=== PATIENT | male | born 1935 | race Caucasian/White ===

== ENCOUNTER 2016-12-30 05:41 | Day surgery (SDC) | payer OTHER, MEDICARE ==
[~2016-12-30] VITALS: Ht 175.3 cm; Wt 70.3 kg
--- NOTE | ~2016-12-30 | O ---
[facility] [place] [address] OPERATIVE REPORT Name: ALEX OLSON Room #: 150-7 [facility]..#: [id number] Admission: 12/30/16 Attend Phys: Kyle Ace MD Discharge: Date of : 37 Report #: [id number] THIS REPORT FOR: //name// CC: ANTHONY Ace DATE OF SERVICE: 12/30/2016 PREOPERATIVE DIAGNOSIS: Basal cell carcinoma of left lower lid and lateral canthus. POSTOPERATIVE DIAGNOSIS: Basal cell carcinoma of left lower lid and lateral canthus. PROCEDURE: Excision of basal cell carcinoma of left lower lid and lateral canthus with frozen section control with tumor extirpation and musculocutaneous flap repair of defect. SURGEON: Kyle Ace M.D. ELECTRONIC WARFARE LINGUIST: None. ANESTHESIA: General. COMPLICATIONS: None. INDICATIONS FOR SURGERY: This pleasant 81-year-old gentleman has a left lower lid basal cell carcinoma incorporated into his left lateral canthus and lower lid. He presents today for excision of this tumor with repair of the ensuing defect. Informed consent was obtained to include but not limited to potential risk for loss of vision, bleeding, infection, failure to improve the problem, and the potential need for further surgery or treatment. DESCRIPTION OF PROCEDURE: The patient was taken to the operative room where general anesthesia was administered. The left lower lid, left lateral canthus, the left cheek, and the left infratemporal fossa were all anesthetized with Xylocaine with epinephrine mixed with Marcaine and Wydase. The patient was subsequently prepped and draped in the usual sterile fashion. A fine tip skin marking pen was then utilized to outline the area of concern with a margin of 1-2 mm. Incisions were then made with a Armaan scissor and drawn down to the periosteum. This specimen was then oriented on a drawing for the waiting pathologist. She snap froze that tissue and found that tumor was still present inferiorly. An additional inferior margin was then undertaken and hemostasis re-achieved. [address] [address] OPERATIVE REPORT Name: ALEX OLSON Room #: 150-7 [facility]#: [id number] Admission: 12/30/16 Attend Phys: Kyle Ace MD Discharge: Date of : 37 Report #: [id number] The pathologist snap froze that tissue and found that the new margin was now clear. A myocutaneous flap was then developed in the lower lid and cheek. A field was then diligently with monopolar cautery. The flap was then resuspended with interrupted 5-0 Prolene sutures deep and then 6-0 plain gut sutures in the skin. The wounds were then cleaned and dressed with erythromycin ointment and the patient was subsequently transported to the recovery area having tolerated the procedures well with no anesthetic or operative complications being noted. By: [id number] Kyle Ace MD /ebony
[~2016-12-30 05:41] MED LIST: ASPIR 8181 MG PO; CENTRUM SILVER1 EAC2 PO; PRILOSEC 20 MG20 MG PO; PRINIVIL20 MG PO; REQUIP3 MG PO; TENORMIN50 MG PO; ZANAFLEX4 MG PO; ZETIA10 MG PO
== END 2016-12-30 14:25 | disposition home or self-care (01) ==
LOC: TBA 05:41 → OR 05:41 → TBA 05:42 → OR 09:57
DX: C44.119 Basal cell carcinoma of skin of left eyelid, including canthus (principal); I10 Essential (primary) hypertension; E78.00 Pure hypercholesterolemia, unspecified; K21.9 Gastro-esophageal reflux disease without esophagitis; Z87.891 Personal history of nicotine dependence; Z90.5 Acquired absence of kidney; Z85.828 Personal history of other malignant neoplasm of skin; Z98.890 Other specified postprocedural states; Z98.41 Cataract extraction status, right eye; Z98.42 Cataract extraction status, left eye; Z88.0 Allergy status to penicillin; Z79.82 Long term (current) use of aspirin; Z79.899 Other long term (current) drug therapy
CPT/HCPCS: 50010; 50101; 50398; 51636; 70005